=== PATIENT | male | born 1990 | race African-American/Black ===

== ENCOUNTER 2024-11-09 05:42 | Emergency (ER) | payer SELFPAY ==
[~2024-11-09] VITALS: Ht 190.5 cm; Wt 77.3 kg
[2024-11-09 05:51] VITALS: BP 117/79; PULSE 116; RESP 19; TEMP 98.2; O2SAT 100
[2024-11-09] MEDS ORDERED: METH-659 PO (06:38)
[2024-11-09] MEDS ORDERED: HYDR-4072 PO (06:38)
== END 2024-11-09 06:52 | disposition home or self-care (01) ==
LOC: EMS 05:42
DX: M50.121 Cervical disc disorder at C4-C5 level with radiculopathy (principal); Z88.6 Allergy status to analgesic agent; V89.2XXA Person injured in unspecified motor-vehicle accident, traffic, initial encounter; Y93.89 Activity, other specified; Y92.89 Other specified places as the place of occurrence of the external cause; Y99.8 Other external cause status
CPT/HCPCS: 99283; Z7502